=== PATIENT | male | born 1995 | race Caucasian/White ===

== ENCOUNTER 2020-08-11 07:30 | Emergency (ER) | payer OTHER ==
[~2020-08-11] VITALS: Ht 180.3 cm; Wt 124.7 kg
[2020-08-11] MEDS ORDERED: IVERMECTIN3 MG PO (12:02)
[2020-08-11] MEDS ORDERED: AIRBORNE EFFER1 EACH PO (12:02)
== END 2020-08-11 11:59 | disposition home or self-care (01) ==
LOC: ER 07:30
DX: U07.1 COVID-19 (principal); B34.9 Viral infection, unspecified

== ENCOUNTER 2020-08-15 00:10 | Emergency (ER) | payer OTHER ==
[~2020-08-15] VITALS: Ht 180.3 cm; Wt 124.7 kg
[~2020-08-15 00:10] MED LIST: AIRBORNE EFFER1 EACH PO; IVERMECTIN3 MG PO
[2020-08-15] MEDS ORDERED: TYLENOL (00:30)
[2020-08-15] MEDS ORDERED: AZITHROMYCIN500 MG PO (06:41)
[2020-08-15] MEDS ORDERED: MELATONIN10 M2 PO (06:41)
[2020-08-15] MEDS ORDERED: MUCINEX DM ER1 EAC1 PO (06:41)
[2020-08-15] MEDS ORDERED: ACETAMINOPHEN650 M2 PO (06:41)
== END 2020-08-15 07:53 | disposition home or self-care (01) ==
LOC: ER 00:10
DX: U07.1 COVID-19 (principal); B34.9 Viral infection, unspecified

== ENCOUNTER 2020-08-18 22:38 | Inpatient (IN) | payer OTHER ==
[~2020-08-18] VITALS: Ht 180.3 cm; Wt 124.7 kg
[~2020-08-18 22:38] MED LIST changes: +ACETAMINOPHEN650 M2 PO; +AZITHROMYCIN500 MG PO; +MELATONIN10 M2 PO; +MUCINEX DM ER1 EAC1 PO; +TYLENOL
--- NOTE | 2020-08-18 22:58 | NUR ---
PTE ALERTA,ESTABLE Y ORIENTADO.ELISEO REFIERE QUE LLEVA DOS SEMANAS CON COVID-19 POSITIVO.PTE CON DIFICULTAD RESPIRATORIO SE JET SIGNOS VITALES Y SE UBICA EN SECCION K SE LE NOTIFCA AL .
--- NOTE | 2020-08-18 23:41 | NUR ---
MR. NIETO EDUCA A PTE SOBRE TX MEDICO ELISEO REFIERE ENTENDER. SE JET MUESTRAS DE LABORATORIO UTILZIANDO MEDIDAS ASEPTICAS. SE COLOCA H/L EL CUAL SE ENCUENTRA PATENTE Y ZAKIYA DE EDEMA. SE NOTIFICAN ABGS Y CT DE PECHO LOS CUALES SE REALIZAN POR EL PERSONAL PERTINENTE. SE COLOCA CN A 3LTS A PTE LUEGO DE ABGS.
--- NOTE | 2020-08-19 01:50 | NUR ---
SE NOTIFICA A MR. SANTOS SOBRE DISPONIBILIDAD DEL PUFF A PTE Y ABGS A LAS 4AM.
--- NOTE | 2020-08-19 07:49 | NUR ---
SE RECIBE PTE DEL TURNO ANTERIOR EN AISLAMIENTO CON PRESION NEGATIVA POR COVID. PACIENTE ALERTA Y ORIENTADO X3, CONSULTADO CON DR. DE LA CRUZ GRANADOS POR BKP Y COVID. AL MOMENTO CON TRATAMIENTO DE NON REBREATHING AL 100%.
[2020-08-26] MEDS ORDERED: MEDROLPACK PO (10:14)
== END 2020-08-26 11:28 | disposition home or self-care (01) | DRG 177 ==
LOC: ER 22:38 → MEDJ 08-19 11:43 → SEC-K 08-19 11:43 → MEDJ 08-19 13:40
PROVIDERS: ADMIT Internal Medicine; ATTEND Internal Medicine
PROC: BW24ZZZ Computerized Tomography (CT Scan) of Chest and Abdomen (ICD-10-PCS; 2020-08-18)
PROC: XW033E5 Introduction of Remdesivir Anti-infective into Peripheral Vein, Percutaneous Approach, New Technology Group 5 (ICD-10-PCS; principal; 2020-08-19)
PROC: 3E0F73Z Introduction of Anti-inflammatory into Respiratory Tract, Via Natural or Artificial Opening (ICD-10-PCS; 2020-08-19)
PROC: 4A12X4Z Monitoring of Cardiac Electrical Activity, External Approach (ICD-10-PCS; 2020-08-19)
PROC: 8E0ZXY6 Isolation (ICD-10-PCS; 2020-08-19)
PROC: 3E0F7SF Introduction of Other Gas into Respiratory Tract, Via Natural or Artificial Opening (ICD-10-PCS; 2020-08-19)
DX: U07.1 COVID-19 (principal); J12.82 Pneumonia due to coronavirus disease 2019; R09.02 Hypoxemia; R00.1 Bradycardia, unspecified

== ENCOUNTER 2022-01-26 06:29 | Emergency (ER) | payer OTHER ==
[~2022-01-26] VITALS: Ht 180.3 cm; Wt 120.2 kg
[~2022-01-26 06:29] MED LIST changes: +MEDROLPACK PO
[2022-01-26] MEDS ORDERED: CIPRO500 MG PO (15:05)
[2022-01-26] MEDS ORDERED: METRONIDAZOLE500 MG PO (15:05)
== END 2022-01-26 18:30 | disposition home or self-care (01) ==
LOC: ER 06:29
DX: R19.7 Diarrhea, unspecified (principal)